=== PATIENT | male | born 1980 ===

== ENCOUNTER 2023-01-30 14:55 | Emergency (ER) | payer OTHER, SELFPAY ==
[2023-01-30 15:00] VITALS: BP 118/73; PULSE 73; RESP 18; TEMP 36.8; O2SAT 97; BMI 29.4
--- NOTE | 2023-01-30 15:37 | ED.URI1 ---
HPI - URI/Sore Throat General Chief Complaint: Upper Respiratory Infection Stated Complaint: PCR PANEL Time Seen by Provider: 01/30/23 15:36 Source: patient Limitations: no limitations History of Present Illness HPI Narrative: patient here for cough aches and pains myalgias and arthralgias. He's had a cough for nearly 5 weeks. He is not had any travel history. No other family members are ill. He's tested multiple, multiple times for Covid in its eyes negative. He started developing some chills and aches and pains on Thursday of this week. He's not had nausea vomiting or gastrointestinal symptoms. He's a nonsmoker otherwise very healthy with no underlying pulmonary disease. He is around a lot of people at his place of employment. Does not have a skin rash. No specific joint swelling. No headache or neck pain. No shortness of breath. No previous history of cardiovascular disease. 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 Since that time he has not had any other autoimmune diseases or joint problems. He did visit the country of [facility] six months ago but has been in very good health since that time. He's not had exposure to anyone with tuberculosis or any type of more serious pulmonary infections that he is aware of through his travels or his job employment. Related Data Home Medications Medication Instructions Recorded Confirmed levothyroxine 112 mcg tablet 112 mcg PO DAILY 01/30/23 01/30/23 (Synthroid) Allergies Allergy/AdvReac Type Severity Reaction Status Date / Time No Known Drug Allergies Allergy Verified 01/30/23 15:04 Exam Narrative Exam Narrative: awake alert pleasant well known to myself. Vital signs are stable and he is afebrile pulse ox ninety-seven percent on room air with no respiratory distress, does not have a spontaneous cough, certainly no whooping type sounds. Chest examination shows heart sounds be normal with no S3-S4 click rub or gallop. Lungs show to be no wheezes rales or rhonchi. There is no bronchospasm with coughing maneuvers. Neck shows no jugular vein distention. Leg showed no deep vein thrombosis phlebitis edema or swelling. Joints do not show any tenderness swelling warmth or erythema. He has no abdominal complaints. Constitutional Vital Signs, click to edit/add: Last Vital Signs Temp 98.2 F 01/30/23 15:00 Pulse 73 01/30/23 15:00 Resp 18 01/30/23 15:00 BP 118/73 01/30/23 15:00 Pulse Ox 97 01/30/23 15:00 O2 Del Method Room Air 01/30/23 15:00 Course Vital Signs Vital signs: Vital Signs Temperature 98.2 F 01/30/23 15:00 Pulse Rate 73 01/30/23 15:00 Respiratory Rate 18 01/30/23 15:00 Blood Pressure 118/73 01/30/23 15:00 Pulse Oximetry 97 01/30/23 15:00 Oxygen Delivery Method Room Air 01/30/23 15:00 Temperature 98.2 F 01/30/23 15:00 Pulse Rate 73 01/30/23 15:00 Respiratory Rate 18 01/30/23 15:00 Blood Pressure 118/73 01/30/23 15:00 Pulse Oximetry 97 01/30/23 15:00 Oxygen Delivery Method Room Air 01/30/23 15:00 MDM - URI/Sore Throat MDM Narrative Medical decision making narrative: patient's chest x-ray was read by the radiologist, and I concur there is no acute infiltrative process. The respiratory panel all the respirate pathogens are negative. It does not test for parvovirus but this patient does not have any skin infection or rash and should be immune based on his previous exposure to the parvovirus as described above. Since this is been an ongoing problem I don't believe that a course of azithromycin is unwarranted at this time. I will have him follow-up with his primary care doctor Lab Data Labs: Lab Results 01/30/23 01/30/23 Range/Units 15:42 16:11 WBC 3.7 L (4.0-11.0) 10^3/uL RBC 4.94 (4.70-6.10) 10^6/uL Hgb 14.5 (14.0-18.0) g/dL Hct 44.2 (42.0-54.0) % MCV 89.5 (80.0-94.0) fL MCH 29.4 (25.9-34.0) pg MCHC 32.8 (29.9-35.2) g/dL RDW 12.1 (11.0-15.0) % Plt Count 137 L (150-450) 10^3/uL MPV 8.6 L (9.5-13.5) fL Neut % (Auto) 64.1 (43.0-75.0) % Lymph % (Auto) 25.3 (20.5-60.0) % [place] % (Auto) 9.0 (1.7-12.0) % Eos % (Auto) 0.5 L (0.9-7.0) % Baso % (Auto) 0.8 (0.2-2.0) % Neut # (Auto) 2.4 (1.4-6.5) 10^3/uL Lymph # (Auto) 0.9 L (1.2-3.8) 10^3/uL [place] # (Auto) 0.3 (0.3-0.8) 10^3/uL Eos # (Auto) 0.0 (0.0-0.7) 10^3/uL Baso # (Auto) 0.0 (0.0-0.1) 10^3/uL Abs Immat Gran (auto) 0.01 (0.00-0.03) 10^3/uL Imm/Tot Granulo (auto) 0.3 (0.0-0.5) % Adenovirus (PCR) Not detected (NOT DETECTE) C. pneumoniae DNA (PCR) Not detected (NOT DETECTE) Coronavirus Type OC43 Not detected (NOT DETECTE) Coronavirus Type HKU1 Not detected (NOT DETECTE) Coronavirus Type 229E Not detected (NOT DETECTE) Coronavirus Type NL63 Not detected (NOT DETECTE) Human Metapneumovir PCR Not detected (NOT DETECTE) M. pneumoniae (PCR) Not detected (NOT DETECTE) Parainfluenza PCR Not detected (NOT DETECTE) Parainfluenza 2 (PCR) Not detected (NOT DETECTE) Parainfluenza 3 (PCR) Not detected (NOT DETECTE) Parainfluenza 4 (PCR) Not detected (NOT DETECTE) RSV (RT-PCR) Not detected (NOT DETECTE) Entero/Rhino (PCR) Not detected (NOT DETECTE) SARS-CoV-2 (PCR) Not detected (NOT DETECTE) Bordetella pertussis (PCR) Not detected (NOT DETECTE) B parapertussis DNA PCR Not detected (NOT DETECTE) Influenza Type A (PCR) Not detected (NOT DETECTE) Influenza Type B (PCR) Not detected (NOT DETECTE) Discharge Plan Discharge Chief Complaint: Upper Respiratory Infection Clinical Impression: Bronchitis Patient Disposition: Home, Self-Care Time of Disposition Decision: 17:24 Prescriptions / Home Meds: No Action levothyroxine [Synthroid] 112 mcg tablet 112 mcg PO DAILY Additional Instructions: Z-Hunter/ibuprofen for joint aches and pains and fever injection., Consider following up with adding machine operator as discussed Stand Alone Forms: Portal Instructions Referrals: JU JOHN [Primary Care Provider] - 1 week
--- NOTE | 2023-01-30 15:44 | XR_ITS ---
The [address] [address] Patient Name: LAURA MICHELLE MRN: [id number] date: 1980 Sex: M Assigned Patient Location: ER Current Patient Location: ER Accession/Order Number: [id number] Exam Date: 01/30/2023 16:23 Report Date: 01/30/2023 16:40 At the request of: MARJ WELLS Procedure: XR chest 1V EXAMINATION: XR chest 1V HISTORY: Cough COMPARISON: None. TECHNIQUE: Portable chest FINDINGS: The lung parenchyma is free of consolidation or infiltrate. No pneumothorax or pleural effusion. The cardiac, mediastinal and hilar contours are normal. The visualized osseous structures exhibit no gross abnormality. XR/XR chest 1V IMPRESSION: No acute cardiopulmonary abnormality. Electronically authenticated by: TERI ANDRADE Date: 01/30/2023 16:40
[2023-01-30 16:05] LABS: Adenovirus NOT DETECTED (NOT DETECTE); Bordetella parapertussis NOT DETECTED (NOT DETECTE); Coronavirus 229E NOT DETECTED (NOT DETECTE); Coronavirus HKU1 NOT DETECTED (NOT DETECTE); Coronavirus NL63 NOT DETECTED (NOT DETECTE); Coronavirus OC43 NOT DETECTED (NOT DETECTE); Human Metapneumovirus NOT DETECTED (NOT DETECTE); Human Rhinovirus/Enterovirus NOT DETECTED (NOT DETECTE); Influenza A NOT DETECTED (NOT DETECTE); Influenza B NOT DETECTED (NOT DETECTE); Mycoplasma pneumoniae NOT DETECTED (NOT DETECTE); Parainfluenza Virus 1 NOT DETECTED (NOT DETECTE); Parainfluenza Virus 2 NOT DETECTED (NOT DETECTE); Parainfluenza Virus 3 NOT DETECTED (NOT DETECTE); Parainfluenza Virus 4 NOT DETECTED (NOT DETECTE); Respiratory Syncytial Virus NOT DETECTED (NOT DETECTE); SARS-CoV-2 NOT DETECTED (NOT DETECTE)
[2023-01-30 16:16] LABS: Basophils Percent Auto 0.8 % (0.2-2.0); Eosinophils Percent Auto 0.5 % (0.9-7.0); Hematocrit 44.2 % (42.0-54.0); Hemoglobin 14.5 g/dL (14.0-18.0); Immature Granulocytes Abs Auto 0.01 10^3/uL (0.00-0.03); Immature Granulocytes Pct Auto 0.3 % (0.0-0.5); Lymphocytes Absolute Auto 0.9 10^3/uL (1.2-3.8); Lymphocytes Percent Auto 25.3 % (20.5-60.0); Mean Corpuscular HGB Conc 32.8 g/dL (29.9-35.2); Mean Corpuscular Hemoglobin 29.4 pg (25.9-34.0); Mean Corpuscular Volume 89.5 fL (80.0-94.0); Mean Platelet Volume 8.6 fL (9.5-13.5); Monocytes Absolute Auto 0.3 10^3/uL (0.3-0.8); Neutrophils Absolute Auto 2.4 10^3/uL (1.4-6.5); Neutrophils Percent Auto 64.1 % (43.0-75.0); Platelet Count 137 10^3/uL (150-450); Red Blood Count 4.94 10^6/uL (4.70-6.10); Red Cell Distribution Width 12.1 % (11.0-15.0); White Blood Count 3.7 10^3/uL (4.0-11.0)
[2023-01-30 17:44] VITALS: TEMP 37.2
[2023-01-30] MEDS: IBUPROFEN 600 MG TABLET PO (17:47)
== END 2023-01-30 17:52 | disposition home or self-care (01) ==
PROVIDERS: Emergency Provider Emergency Medicine Emergency Medical Services; PCP Family Medicine
DX: J40 Bronchitis, not specified as acute or chronic (principal); Z20.822 Contact with and (suspected) exposure to COVID-19; Z79.890 Hormone replacement therapy
CPT/HCPCS: 0202U; 36415; 71045; 85025; 99285